=== PATIENT | female | born 1970 | race Caucasian/White ===

== ENCOUNTER 2025-09-10 11:04 | Observation (INO) | payer MEDICARE ==
[2025-09-10] MEDS ORDERED: TORAdol 30 mg Injection ONE (12:24)
[2025-09-10] MEDS: TORAdol 30 mg Injection IV ONE (12:25)
[2025-09-10 12:41] LABS: BASOPHIL % 0.2 % (0.1-1.2); Basophil (Absolute #) 0.02 x10^3/uL (0.01-0.08); Eosinophil (Absolute #) 0.17 x10^3/uL (0.04-0.36); Hematocrit 38.5 % (34.1-44.9); Hemoglobin 12.5 g/dL (11.2-15.7); IMMATURE GRAN # 0.04 x10^3u/L (0.001-0.031); IMMATURE GRAN % 0.4 % (0.001-0.429); Lymphocyte (Absolute #) 2.37 x10^3/uL (1.18-3.74); Mean Corpuscular Hemoglobin 29.1 pg (25.6-32.2); Mean Corpuscular Hgb Concent. 32.5 g/dL (32.2-35.5); Monocyte (Absolute #) 0.59 x10^3/uL (0.24-0.86); NUCLEATED RBC # 0.00 x10^3u/L (0.00-0.012); NUCLEATED RBC % 0.0 % (0.00-0.2); Platelet Count 281 x10^3/uL (182-369); Red Blood Count 4.30 x10^6/uL (3.93-5.22); White Blood Count 9.6 x10^3/uL (3.98-10.04)
[2025-09-10 12:55] LABS: Calcium 9.7 mg/dL (8.4-10.2); Carbon Dioxide 26.0 mmol/L (22-30); Creatinine 1 0.65 mg/dL (0.52-1.04); EST GLOMERULAR FILTRATION RATE 103.3 ML/MIN; Glucose 93.0 mg/dL (74-106); Potassium 3.8 mmol/L (3.5-5.1); SGOT/AST 31.0 U/L (14-36); SGPT/ALT 23.0 U/L (0-35); Total Protein 7.9 g/dL (6.3-8.2)
[2025-09-10] MEDS: Merrem 1 GM in Sodium Chloride 0.9% 100 ML IV ONE (14:42)
--- NOTE | 2025-09-10 14:59 | XRAY ---
Indication: Pain. Cat bite @1st metacarpal. Multiple contiguous axial images obtained through the right hand using 100 cc Isovue 370 contrast. Sagittal and coronal reformatted images obtained. Comparison: None Base of 2nd finger demonstrates mild subcutaneous soft tissue swelling/induration laterally presumed inflammatory/infectious. Adjacent abductor pollicis muscle demonstrates small intramuscular fluid collection measuring at least 1.7 x 1.0 x 1.8 cm with peripheral enhancement favoring pyomyositis. No other focal solid/cystic soft tissue mass or abnormal fluid collection. Bone windows demonstrates 4 mm scaphoid and lunate subcortical cysts. No acute fracture, dislocation, or osseous destructive process. Impression: 1. Soft tissue swelling/induration base 2nd finger favoring cellulitis. 2. Small intramuscular fluid collection abductor pollicis muscle with peripheral enhancement favoring pyomyositis. 3. Incidental tiny scaphoid/lunate subcortical cysts.
--- NOTE | 2025-09-10 15:17 | ERPHSYRPT ---
- History of Present Illness Time Seen by Provider: 09/10/25 15:12 Source: patient Exam Limitations: no limitations Patient Subjective Stated Complaint: PT STATES SHE WAS TOLD TO COME HERE FOR ULTRASOUND AND IV ANITBIOTICS Triage Nursing Assessment: PT ARRIVES TO THE ED VIA PRIVATE VEHICLE WITH FRIEND. PT IS ABLE TO AMBULATE INTO THE ED WITHOUT DIFFICULTY. PT STATES THAT ON TUESDAY HER HUSBANDS DOG BIT HER. THE DOG BITES WERE ON HER BILATERAL HANDS. PT WAS SEEN AT [facility] TUESDAY EVENING WHERE SHE FILLED OUT THE ANIMAL BITE PAPERWORK. PT STATES THE THE HOSPITAL GAVE HER AN ANTIBIOTIC AND PUT STERI STRIPS ON ONE OF THE WOUNDS, AND GAVE HER A TETANUS SHOT. PT WAS SEEN TODAY AT DR. PRECIADO OFFICE AND WAS TOLD TO COME TO THE ER BECAUSE SHE WILL NEED AN ULTRASOUND TO RULE OUT AN ABCESS AND IV ANTIBIOTICS. PT IS RATING THE PAIN IN HER RIGHT HAND A 9/10 THAT FEELS SHARP LIKE PINS AND NEEDLES AND RADIATES UP INTO HER ELBOW. PT WOUNDS ARE SCABBED OVER ON HER BILATERAL HANDS AND BRUISED. PTS RIGHT HAND IS RED, WARM, AND SWOLLEN. PT STATES IT IS HARD TO EVEN MOVE HER RIGHT THUMB. Physician History: Patient is a 55-year-old female history of seizure disorder, congestive heart failure, type II diabetic arthritis GERD irritable bowel syndrome, anxiety former smoker presents to our ED as a referral from her primary care doctor for evaluation and treatment of a progressive worsening right hand dog bite. Patient sustained a dog bite on Tuesday. She went to [facility]. Patient was evaluated. Associated animal bite paperwork was completed. Patient was treated with clindamycin. Patient is allergic to penicillin. Wound was dressed with Steri-Strips. Patient followed up with her primary care doctor today. Patient's primary care doctor, Dr. Preciado felt the wound was becoming progressively worse. She was concerned with possible abscess and sent patient to our ED for a CT scan and IV antibiotics. No interval trauma. Patient had an x-ray at [facility]. No fractures or dislocations observed at that time. Patient states the area is becoming more tender red and swollen. No fever or systemic manifestations. Patient otherwise feels well. She voices no other complaints or concerns at this time. Portions of this note were created with voice recognition technology. There may be grammatical, spelling, punctuation or sound alike errors Timing/Duration: day(s) Severity: moderate (4 days) Modifying Factors: Improves With: nothing Associated Symptoms: denies symptoms Allergies/Adverse Reactions: Penicillins Allergy (Severe, Verified 09/10/25 11:19) Anaphylactic Reaction adhesive Adverse Reaction (Mild, Verified 09/10/25 11:19) Skin Irritation Home Medications: Aspirin 81 mg PO DAILY 09/10/25 [History] Calcium Citrate/Vitamin D3 [Calcium Citrate - Vit D3 Tab] 1 each PO DAILY 09/10/25 [History] Cinnamon Bark [Cinnamon] 2,000 mg PO DAILY 09/10/25 [History] Fenofibrate 160 mg PO DAILY 09/10/25 [History] Ferrous Sulfate [Iron] 65 mg PO DAILY 09/10/25 [History] Fexofenadine HCl [Deanna Allergy] 60 mg PO DAILY 09/10/25 [History] Insulin Aspart [NovoLOG Insulin] See Rx Instructions .ROUTE .COMPLEX 09/10/25 [History] Insulin Glargine [Lantus Insulin] 15 units SQ HS 09/10/25 [History] Levothyroxine Sodium 88 Mcg [Synthroid 88 Mcg] 88 mcg PO DAILY 09/10/25 [History] Mecobalamin [B12 Active] 0.5 tab PO WEEKLY 09/10/25 [History] Metformin HCl 500 mg [Glucophage 500 MG] 500 mg PO BIDWM 09/10/25 [History] Metoprolol Succinate [Toprol Xl] 100 mg PO DAILY 09/10/25 [History] Naproxen Sodium [Aleve] 220 mg PO Q4-6HPRN PRN 09/10/25 [History] Omeprazole 20 mg PO DAILY 09/10/25 [History] Rosuvastatin Calcium 10 mg PO HS 09/10/25 [History] Simethicone 125 mg PO DAILY 09/10/25 [History] Tirzepatide [Mounjaro] 2.5 mg SQ WEEKLY 09/10/25 [History] Hx Tetanus, Diphtheria Vaccination/Date Given: Yes Hx Influenza Vaccination/Date Given: Yes Hx Pneumococcal Vaccination/Date Given: No Immunizations Up to Date: Yes Travel Risk - International Travel Have you traveled outside of the country in past 3 weeks: No - Emerging Infectious Disease Are you exhibiting symptoms associated with any current EIDs: No - Review of Systems All Other Systems: Reviewed and Negative - Past Medical History Pertinent Past Medical History: Yes Neurological History: Seizures ENT History: No Pertinent History Cardiac History: Congestive Heart Failure Respiratory History: CHF Endocrine Medical History: Diabetes Type II Musculoskeletal History: Arthritis, Degenerative Disk Disease, Osteoarthritis GI Medical History: No Pertinent History, Diverticulosis, GERD, Hemorrhoids, Irritable Bowel History: No Pertinent History Psycho-Social History: Anxiety Female Reproductive Disorders: No Pertinent History, Menstrual Problems Other Medical History: FATTY LIVER, COLAGEN DISORDER, HYPERMOBILITY, BRIDGING IN THE HEART, OVARIAN CYST - Past Surgical History Past Surgical History: Yes Neuro Surgical History: No Pertinent History Cardiac: Cardiac Catheterization Respiratory: No Pertinent History Gastrointestinal: Cholecystectomy Genitourinary: No Pertinent History Musculoskeletal: No Pertinent History Female Surgical History: No Pertinent History Other Surgical History: GASTRIC BYPASS IN 2005, COLONOSCOPY 2023 - Social History Smoking Status: Former smoker Exposure to second hand smoke: Yes Drug Use: none - Social Determinants of Health Will the patient participate in the screening: Yes Do you worry about a steady place to live?: No Do you have any problems with any of the following?: No known problems In the past 12 months,have you had to go without utilities?: No Transportation Issues: No Has anyone in your support network made you feel unsafe?: No Have you or anyone in your house had to go w/o enough food: No - Nursing Vital Signs Nursing Vital Signs: Initial Vital Signs Temperature 97.5 F 09/10/25 11:16 Pulse Rate 66 09/10/25 11:16 Respiratory Rate 12 09/10/25 11:16 Blood Pressure 154/79 09/10/25 11:16 O2 Sat by Pulse Oximetry 98 09/10/25 11:16 Pain Scale Pain Intensity 4 - Physical Exam General Appearance: no apparent distress, alert Eye Exam: PERRL/EOMI, eyes nml inspection Ears, Nose, Throat Exam: normal ENT inspection, moist mucous membranes Neck Exam: normal inspection, full range of motion Respiratory Exam: normal breath sounds, lungs clear, No respiratory distress Cardiovascular Exam: regular rate/rhythm, normal peripheral pulses Gastrointestinal/Abdomen Exam: soft, normal bowel sounds, No tenderness, No mass Back Exam: normal inspection, normal range of motion, No CVA tenderness, No vertebral tenderness Extremity Exam: normal inspection, normal range of motion, pelvis stable, other (There is some swelling and cellulitis tracking proximately from the right hand near the thumb index finger up to the wrist area. No lymphadenopathy. Involved extremities neurovascular intact distally compartments are soft cap refill less than 2 seconds.) Neurologic Exam: alert, oriented x 3, cooperative, normal mood/affect, nml cerebellar function, nml station & gait, sensation nml, No motor deficits Skin Exam: normal color, warm, dry, No rash Lymphatic Exam: No adenopathy SpO2 Interpretation: normal SpO2: 98 O2 Delivery: Room Air - Course Nursing assessment & vital signs reviewed: Yes - CT Exams Upper Extremity CT Interpretation: Tele-radiologist Report (CT with contrast reveals cellulitis of the involved hand and abductor pollicis pyomyositis.) Ordered Tests: Active Orders 24 hr Category Date Time Status Storage Battery Inspector And Tester STAT Care 09/10/25 11:47 Active IV Insertion STAT Care 09/10/25 11:47 Active Pulse Oximetry (ED) STAT Care 09/10/25 11:47 Active UPPER EXTREMITY W CONTRAST [CT] Stat Exams 09/10/25 12:06 Completed BLOOD CULTURE Stat Lab 09/10/25 12:28 Received CBC W DIFF Stat Lab 09/10/25 12:10 Completed CMP Stat Lab 09/10/25 12:10 Completed Medication Summary Generic Name Dose Route Start Last Admin Trade Name Freq PRN Reason Stop Dose Admin Sodium Chloride 1,000 mls @ 100 mls/hr 09/10/25 12:00 09/10/25 12:00 Sodium Chloride 0.9% 1000 Ml IV 10/10/25 11:59 100 mls/hr .Q10H VICKY Administration Vancomycin HCl 1 gm in 200 mls @ 125 mls/hr 09/10/25 14:31 Vancomycin 1 Gram/200 Ml Bag IV 09/10/25 16:06 STAT ONE Discontinued Medications Generic Name Dose Route Start Last Admin Trade Name Freq PRN Reason Stop Dose Admin Meropenem 1 gm/ Sodium 100 mls @ 200 mls/hr 09/10/25 14:31 09/10/25 15:12 Chloride IV 09/10/25 15:00 Infused STAT ONE Infusion Sodium Chloride Confirm 09/10/25 14:37 Sodium Chloride 0.9% Administered 09/10/25 14:38 Dose 100 mls @ ud .ROUTE .STK-MED ONE Ketorolac Tromethamine 30 mg 09/10/25 12:07 09/10/25 12:25 Ketorolac Tromethamine 30 Mg/Ml Inj IV 09/10/25 12:08 30 mg STAT ONE Administration Ketorolac Tromethamine Confirm 09/10/25 12:24 Ketorolac Tromethamine 30 Mg/Ml Inj Administered 09/10/25 12:25 Dose 30 mg .ROUTE .STK-MED ONE Meropenem Confirm 09/10/25 14:37 Meropenem 1 Gm Vial Administered 09/10/25 14:38 Dose 1 gm IV .STK-MED ONE Lab/Rad Data: Laboratory Result Diagrams 09/10/25 12:10 09/10/25 12:10 Laboratory Results 09/10/25 09/10/25 Range/Units 12:10 12:10 WBC 9.6 (3.98-10.04) x10^3/uL RBC 4.30 (3.93-5.22) x10^6/uL Hgb 12.5 (11.2-15.7) g/dL Hct 38.5 (34.1-44.9) % MCV 89.5 (79.4-94.8) fL MCH 29.1 (25.6-32.2) pg MCHC 32.5 (32.2-35.5) g/dL RDW 12.8 (11.7-14.4) % Plt Count 281 (182-369) x10^3/uL MPV 11.3 (9.4-12.3) fL Gran % 66.6 (34.0-71.1) % Immature Gran % (Auto) 0.4 (0.001-0.429) % Nucleat RBC Rel Count 0.0 (0.00-0.2) % Eos # (Auto) 0.17 (0.04-0.36) x10^3/uL Immature Gran # (Auto) 0.04 H (0.001-0.031) x10^3u/L Absolute Lymphs (auto) 2.37 (1.18-3.74) x10^3/uL Absolute Monos (auto) 0.59 (0.24-0.86) x10^3/uL Absolute Nucleated RBC 0.00 (0.00-0.012) x10^3u/L Lymphocytes % 24.8 (19.3-51.7) % Monocytes % 6.2 (4.7-12.5) % Eosinophils % 1.8 (0.7-5.8) % Basophils % 0.2 (0.1-1.2) % Absolute Granulocytes 6.38 H (1.56-6.13) x10^3/uL Basophils # 0.02 (0.01-0.08) x10^3/uL Sodium 138 (135-145) mmol/L Potassium 3.8 (3.5-5.1) mmol/L Chloride 102 (98-107) mmol/L Carbon Dioxide 26 (22-30) mmol/L Anion Gap 13.3 (5-15) MEQ/L BUN 11 (7-17) mg/dL Creatinine 0.65 (0.52-1.04) mg/dL Estimated GFR 103.3 ML/MIN Glucose 93 (74-106) mg/dL Calcium 9.7 (8.4-10.2) mg/dL Total Bilirubin 0.60 (0.2-1.3) mg/dL AST 31 (14-36) U/L ALT 23 (0-35) U/L Alkaline Phosphatase 68 (38-126) U/L Serum Total Protein 7.9 (6.3-8.2) g/dL Albumin 4.5 (3.5-5.0) g/dL - Progress Progress: improved Progress Note: I spoke to Dr. Mireles hospitalist at 3:27 PM. He advised consulting with orthopedic surgery before admission to see whether or not specialized services would be needed that would preclude admission to our facility. I spoke to Dr. Jose Alejandro Ervin of orthopedic surgery at 3:35 PM. He states that based on the CAT scan report the infection should resolve with IV antibiotics. However if the infection declared itself and or formed an abscess that need to be drained he would be able to perform the procedure in house and that he would be available for consultation at any time. I spoke to again at 3:43 PM. I advised him that Dr. Jose Alejandro Ervin of orthopedics feels the patient can be admitted to our ED for IV antibiotics and he would be available for consultation if symptoms or if patient's condition worsens. Dr. Mireles accepts admission at 3:44 PM. Patient is a 55-year-old female history of seizure disorder, congestive heart failure, type II diabetic arthritis GERD irritable bowel syndrome, anxiety former smoker presents to our ED as a referral from her primary care doctor for evaluation and treatment of a progressive worsening right hand dog bite. Patient sustained a dog bite on Tuesday. She went to [facility]. Patient was evaluated. Associated animal bite paperwork was completed. Patient was treated with clindamycin. Patient is allergic to penicillin. Wound was dressed with Steri-Strips. Patient followed up with her primary care doctor today. Patient's primary care doctor, Dr. Preciado felt the wound was becoming progressively worse. She was concerned with possible abscess and sent patient to our ED for a CT scan and IV antibiotics. Physical exam reveals the thenar eminence to be tender swollen with overlying cellulitis. The involved extremities neurovasc intact distally compartments are soft cap refill less than 2 seconds. Laboratory workup essentially nonremarkable. No leukocytosis no fever. There are some early lymphangitis. CT scan shows pyomyositis no rosalina abscess. Patient will require hospitalization for IV antibiotics. Plan of care discussed with patient. She agrees to admission at [facility] for further evaluation and treatment. Meropenem antibiotic ordered and administered as a second line as patient is allergic to penicillin. Portions of this note were created with voice recognition technology. There may be grammatical, spelling, punctuation or sound alike errors History obtained from patient and her friend who is at the bedside. Differential diagnosis includes hand abscess, cellulitis, pyomyositis, hand fracture, foreign body Complexity of problems addressed is moderate acute complicated. No critical care time. Complexity of data reviewed and analyzed is extensive. Test ordered test reviewed results analyzed and correlated clinically with history and physical exam. Management discussed with hospitalist and orthopedic surgery service. Risk of complication and or risk of morbidity/mortality of patient management is high. Patient requires hospitalization for further evaluation and treatment with IV antibiotics. Vital stable. Time spent admit patient approximately 20 minutes. Plan of care established for shared decision making. No social determinants of health present to impede follow-up. Portions of this note were created with voice recognition technology. There may be grammatical, spelling, punctuation or sound alike errors Patient declined additional pain medication 09/10/25 15:40 Discussed with : Kaveh Will see patient in: hospital (observation) Counseled pt/family regarding: lab results, diagnosis, rad results - Departure Departure Disposition: Observation Clinical Impression: Dog bite, Pyomyositis, Cellulitis, Lymphangitis Condition: Stable Critical Care Time: No Referrals: DESTINEE PRECIADO DO [Primary Care Provider, [facility]] - Follow up/PCP as directed
[2025-09-10] MEDS ORDERED: VANCOMYCIN 1 GRAM/200 ML BAG 1 GM/200 ML PIGGYBACK IV ONE (15:45)
[2025-09-10] MEDS: VANCOMYCIN 1 GRAM/200 ML BAG 1 GM/200 ML PIGGYBACK IV ONE (15:46)
--- NOTE | 2025-09-10 16:32 | PCM.HP ---
History of Present Illness - Chief Complaint Chief Complaint: dog bite Date: 09/10/25 History of Present Illness: is a 55-year-old female with a past medical history significant for seizure disorder, congestive heart failure, type II diabetes mellitus, arthriti s, GERD, irritable bowel syndrome, anxiety, and former tobacco use presented to the emergency department on 09/10/25 as a referral from her primary care provider for evaluation of a progressively worsening dog bite to the right hand. The injury occurred on Tuesday when she was bitten by her own dog. She was initially evaluated at [facility], where animal bite paperwork was completed, a Tdap vaccine was administered, and she was prescribed oral clindamycin. This medication was later discontinued when she was instructed to start a new prescription, which she did not obtain. She is allergic to penicillin. The wound at that time was dressed with Steri-Strips. Pt was seen by Ortho at [facility] yesterday and a new RX was sent in but she did not pick this up. The patient followed up with her primary care physician, Dr. Boland, earlier today. Due to increasing redness, swelling, and tenderness, her provider became concerned for possible abscess formation and referred her to our ED for further evaluation, including a CT scan and IV antibiotics. The patient denies any interval trauma, fever, or systemic symptoms and otherwise feels well. She reports that the wound continues to worsen in appearance and discomfort. A prior x-ray performed at [facility] showed no fractures or dislocations. CT imaging of the right hand obtained today demonstrated soft tissue swelling and induration at the base of the second finger consistent with cellulitis, as well as a small intramuscular fluid collection within the abductor pollicis muscle with peripheral enhancement concerning for pyomyositis. Tiny incidental subcortical cysts of the scaphoid and lunate were also noted. Orthopedics was consulted in the ED and did not feel that surgical drainage was indicated at this time. The patient was started on IV antibiotics and her right upper extremity was placed in elevation at heart level to assist with edema control. Pain was managed with Toradol in the ED, reducing her pain to a tolerable level of 5/10. Blood cultures 2 were obtained. Her laboratory results were overall reassuring, with a normal white blood cell count. Her blood pressure was elevated on arrival; however, she reports taking her antihypertensive medication today and elevation may be related to pain. She denies any additional concerns at this time. - Review of Systems Constitutional: No Fever, No Chills Eyes: No Symptoms Ears, Nose, & Throat: No Symptoms Respiratory: No Cough, No Short Of Breath Cardiac: No Chest Pain, No Edema, No Syncope Abdominal/Gastrointestinal: No Abdominal Pain, No Nausea, No Vomiting, No Diarrhea Genitourinary Symptoms: No Dysuria Musculoskeletal: No Back Pain, No Neck Pain Skin: Skin Lesions (right hand dog bite), No Rash Neurological: No Dizziness, No Focal Weakness, No Sensory Changes Psychological: No Symptoms Endocrine: No Symptoms Hematologic/Lymphatic: No Symptoms Immunological/Allergic: No Symptoms Medications & Allergies Home Medications: Home Medication List Aspirin 81 mg PO DAILY 09/10/25 [History Confirmed 09/10/25] Calcium Citrate/Vitamin D3 [Calcium Citrate - Vit D3 Tab] 1 each PO DAILY 09/10/25 [History Confirmed 09/10/25] Cinnamon Bark [Cinnamon] 2,000 mg PO DAILY 09/10/25 [History Confirmed 09/10/25] Fenofibrate 160 mg PO DAILY 09/10/25 [History Confirmed 09/10/25] Ferrous Sulfate [Iron] 65 mg PO DAILY 09/10/25 [History Confirmed 09/10/25] Fexofenadine HCl [Deanna Allergy] 60 mg PO DAILY 09/10/25 [History Confirmed 09/10/25] Insulin Aspart [NovoLOG Insulin] See Rx Instructions .ROUTE .COMPLEX 09/10/25 [History Confirmed 09/10/25] Insulin Glargine [Lantus Insulin] 15 units SQ HS 09/10/25 [History Confirmed 09/10/25] Levothyroxine Sodium 88 Mcg [Synthroid 88 Mcg] 88 mcg PO DAILY 09/10/25 [History Confirmed 09/10/25] Mecobalamin [B12 Active] 0.5 tab PO WEEKLY 09/10/25 [History Confirmed 09/10/25] Metformin HCl 500 mg [Glucophage 500 MG] 500 mg PO BIDWM 09/10/25 [History Confirmed 09/10/25] Metoprolol Succinate [Toprol Xl] 100 mg PO DAILY 09/10/25 [History Confirmed 09/10/25] Naproxen Sodium [Aleve] 220 mg PO Q4-6HPRN PRN 09/10/25 [History Confirmed 09/10/25] Omeprazole 20 mg PO DAILY 09/10/25 [History Confirmed 09/10/25] Rosuvastatin Calcium 10 mg PO HS 09/10/25 [History Confirmed 09/10/25] Simethicone 125 mg PO DAILY 09/10/25 [History Confirmed 09/10/25] Tirzepatide [Mounjaro] 2.5 mg SQ WEEKLY 09/10/25 [History Confirmed 09/10/25] Allergies/Adverse Reactions: Allergies Allergy/AdvReac Type Severity Reaction Status Date / Time Penicillins Allergy Severe Anaphylactic Verified 09/10/25 11:19 Reaction adhesive AdvReac Mild Skin Verified 09/10/25 11:19 Irritation - Past Medical History Past Medical History: Yes Neurological History: Seizures ENT History: No Pertinent History Cardiac History: Congestive Heart Failure Respiratory History: CHF Endocrine Medical History: Diabetes Type II Musculoskelatal History: Arthritis, Degenerative Disk Disease, Osteoarthritis GI Medical History: No Pertinent History, Diverticulosis, GERD, Hemorrhoids, Irritable Bowel History: No Pertinent History Pyscho-Social History: Anxiety Reproductive Disorders: No Pertinent History, Menstrual Problems Comment: FATTY LIVER, COLAGEN DISORDER, HYPERMOBILITY, BRIDGING IN THE HEART, OVARIAN CYST - Past Surgical History Past Surgical History: Yes Neuro Surgical History: No Pertinent History Cardiac History: Cardiac Catheterization Respiratory Surgery: No Pertinent History GI Surgical History: Cholecystectomy Genitourinary Surgical Hx: No Pertinent History Musculskeletal Surgical Hx: No Pertinent History Female Surgical History: No Pertinent History Other Surgical History: GASTRIC BYPASS IN 2005, COLONOSCOPY 2023 - Social History Smoking Status: Former smoker Exposure to second hand smoke: Yes Alcohol: None Drug Use: none - Social Determinants of Health Will the patient participate in the screening: Yes Do you worry about a steady place to live?: No Do you have any problems with any of the following?: No known problems In the past 12 months,have you had to go without utilities?: No Have you or anyone in your house had to go without enough: No Transportation Issues: No Has anyone in your support network made you feel unsafe?: No - Physical Exam Vital Signs: Vital Signs - 24 hr Temp Pulse Resp BP BP Pulse Ox 09/10/25 16:00 78 16 183/94 98 09/10/25 15:51 98 09/10/25 15:30 71 18 171/86 98 09/10/25 15:00 67 17 171/77 99 09/10/25 14:31 67 15 198/103 09/10/25 14:09 74 12 169/87 98 09/10/25 13:30 166/74 09/10/25 13:00 63 18 143/75 99 09/10/25 12:31 63 16 177/81 98 09/10/25 12:13 64 15 143/76 99 09/10/25 12:01 65 14 168/82 99 09/10/25 11:59 98 09/10/25 11:31 65 14 129/68 98 09/10/25 11:16 97.5 F 66 12 154/79 98 General Appearance: no apparent distress, alert Neurologic Exam: alert, oriented x 3, cooperative, normal mood/affect, nml cerebellar function, nml station & gait, sensation nml, No motor deficits Eye Exam: PERRL/EOMI, eyes nml inspection Ears, Nose, Throat Exam: normal ENT inspection, TMs normal, pharynx normal, moist mucous membranes Neck Exam: normal inspection, non-tender, supple, full range of motion Respiratory Exam: normal breath sounds, lungs clear, No respiratory distress Cardiovascular Exam: regular rate/rhythm, normal heart sounds, normal peripheral pulses Gastrointestinal/Abdomen Exam: soft, normal bowel sounds, No tenderness, No mass Back Exam: normal inspection, normal range of motion, No CVA tenderness, No vertebral tenderness Extremity Exam: normal inspection, normal range of motion, pelvis stable Skin Exam: normal color, warm, dry, other (dog bite right hand- steri- strips in place), No rash Lymphatic Exam: No adenopathy Results - Labs Lab/Micro Results: Lab Results-Last 24 Hours 09/10/25 09/10/25 Range/Units 12:10 12:10 WBC 9.6 (3.98-10.04) x10^3/uL RBC 4.30 (3.93-5.22) x10^6/uL Hgb 12.5 (11.2-15.7) g/dL Hct 38.5 (34.1-44.9) % MCV 89.5 (79.4-94.8) fL MCH 29.1 (25.6-32.2) pg MCHC 32.5 (32.2-35.5) g/dL RDW 12.8 (11.7-14.4) % Plt Count 281 (182-369) x10^3/uL MPV 11.3 (9.4-12.3) fL Gran % 66.6 (34.0-71.1) % Immature Gran % (Auto) 0.4 (0.001-0.429) % Nucleat RBC Rel Count 0.0 (0.00-0.2) % Eos # (Auto) 0.17 (0.04-0.36) x10^3/uL Immature Gran # (Auto) 0.04 H (0.001-0.031) x10^3u/L Absolute Lymphs (auto) 2.37 (1.18-3.74) x10^3/uL Absolute Monos (auto) 0.59 (0.24-0.86) x10^3/uL Absolute Nucleated RBC 0.00 (0.00-0.012) x10^3u/L Lymphocytes % 24.8 (19.3-51.7) % Monocytes % 6.2 (4.7-12.5) % Eosinophils % 1.8 (0.7-5.8) % Basophils % 0.2 (0.1-1.2) % Absolute Granulocytes 6.38 H (1.56-6.13) x10^3/uL Basophils # 0.02 (0.01-0.08) x10^3/uL Sodium 138 (135-145) mmol/L Potassium 3.8 (3.5-5.1) mmol/L Chloride 102 (98-107) mmol/L Carbon Dioxide 26 (22-30) mmol/L Anion Gap 13.3 (5-15) MEQ/L BUN 11 (7-17) mg/dL Creatinine 0.65 (0.52-1.04) mg/dL Estimated GFR 103.3 ML/MIN Glucose 93 (74-106) mg/dL Calcium 9.7 (8.4-10.2) mg/dL Total Bilirubin 0.60 (0.2-1.3) mg/dL AST 31 (14-36) U/L ALT 23 (0-35) U/L Alkaline Phosphatase 68 (38-126) U/L Serum Total Protein 7.9 (6.3-8.2) g/dL Albumin 4.5 (3.5-5.0) g/dL - Radiology Impressions Radiology Exams & Impressions: Radiology Procedures Category Date Time Status UPPER EXTREMITY W CONTRAST [CT] Stat Exams 09/10/25 12:06 Completed Assessment/Plan (1) Dog bite Current Visit: Yes Status: Acute Qualifiers: Encounter type: subsequent encounter Qualified Code(s): W54.0XXD - Bitten by dog, subsequent encounter Assessment & Plan: - Sent to ER by PCP - Was seen at [facility] initally - Labs reviewed - Radiology results reviewed - Dog bite form completed at inital visit at [facility] per pt. - Elevate arm to heart level - Took Clindamycin OP - BC x2 - TDAP up to date - IV antibiotics - Narcotic pain medication BID PRN - Tylenol PRN Code(s): W54.0XXA - BITTEN BY DOG, INITIAL ENCOUNTER (2) Cellulitis Current Visit: Yes Status: Acute Assessment & Plan: - From dog bite of right hand - IV antibiotics - CBC, CMP reviewed Code(s): L03.90 - CELLULITIS, UNSPECIFIED (3) Morbid obesity Current Visit: Yes Status: Chronic Assessment & Plan: - Advised ADA diet and exercise control Code(s): E66.01 - MORBID (SEVERE) OBESITY DUE TO EXCESS CALORIES (4) Pyomyositis Current Visit: Yes Status: Acute Assessment & Plan: - As seen on CT extremity: 1. Soft tissue swelling/induration base 2nd finger favoring cellulitis. 2. Small intramuscular fluid collection abductor pollicis muscle with peripheral enhancement favoring pyomyositis. 3. Incidental tiny scaphoid/lunate subcortical cysts. - Ortho consult- no intervention needed at this time. - IV antibiotics Code(s): M60.009 - INFECTIVE MYOSITIS, UNSPECIFIED SITE (5) Lymphangitis Current Visit: Yes Status: Acute Assessment & Plan: - As seen on CT extremity - IV antibiotics Code(s): I89.1 - LYMPHANGITIS (6) Type II diabetes mellitus Current Visit: Yes Status: Chronic Qualifiers: Diabetes mellitus oysterman insulin use: with oysterman use Diabetes mellitus complication status: without complication Qualified Code(s): E11.9 - Type 2 diabetes mellitus without complications; Z79.4 - [facility] (current) use of insulin Assessment & Plan: - A1C - Accuchecks Ac/HS - Humalog s/s - Continue metformin (7) GERD (gastroesophageal reflux disease) Current Visit: Yes Status: Chronic Assessment & Plan: - Continue PPI Code(s): K21.9 - GASTRO-ESOPHAGEAL REFLUX DISEASE WITHOUT ESOPHAGITIS (8) Anxiety Current Visit: Yes Status: Chronic Assessment & Plan: - Continue home meds Code(s): F41.9 - ANXIETY DISORDER, UNSPECIFIED (9) CHF (congestive heart failure) Current Visit: Yes Status: Chronic Assessment & Plan: - Not in acute exacerbation - Continue home meds Code(s): I50.9 - HEART FAILURE, UNSPECIFIED (10) HTN (hypertension) Current Visit: Yes Status: Chronic Assessment & Plan: - BP elevated- trend - Hydralizine PRN Code(s): I10 - ESSENTIAL (PRIMARY) HYPERTENSION (11) Hypothyroidism Current Visit: Yes Status: Chronic Assessment & Plan: - Continue Synthroid VTE: Lovenox PPI: omeprazole Next of KIN: Spouse- Jaya D/C plan: 1-2 days Code status: Full PLan of care time > 50 minutes Code(s): E03.9 - HYPOTHYROIDISM, UNSPECIFIED Telemedicine Encounter - Telemedicine Encounter Telemedicine Encounter: "The entirety of this encounter was performed via Telemedicine" This visit was performed using real-time audio and video connection between my location and thepatients locationwith the assistance of a surrogateat the patients location. Written or verbal consent was obtained from the pat ient/guardian to perform this visit [facility]. Any patient questions regarding the telemedicine interaction were answered.
[2025-09-10] MEDS ORDERED: APRESOLINE 20 MG/ML INJ IV PRN (17:07)
[2025-09-10] MEDS ORDERED: NON-FORMULARY ITEM (Mecobalamin [B12 Active] 1,000 MCG Tab.Chew) PO SCH (17:15)
[2025-09-10] MEDS ORDERED: MEDICATION INTERVENTION MC SCH (17:30)
[2025-09-10] MEDS: PHARMACY DOSING REQUIRED: VANCOMYCIN IV STA (17:54)
[2025-09-10] MEDS: VANCOMYCIN 1 GRAM/200 ML BAG 1 GM/200 ML PIGGYBACK IV SCH (17:55)
[2025-09-10] MEDS ORDERED: Cyclobenzaprine 10 MG ONE (22:38)
[2025-09-10] MEDS: Zanaflex 4 MG PO PRN (22:41)
[2025-09-10] MEDS: NORCO 5/325 MG PO PRN (22:41)
[2025-09-10] MEDS: ZOCOR 20MG PO SCH (22:41)
[2025-09-10] MEDS: Merrem 1 GM in Sodium Chloride 0.9% 100 ML IV SCH (22:42)
[2025-09-10] MEDS: Lantus Insulin SQ SCH (22:42)
[2025-09-10] MEDS: HUMALOG SQ SCH (22:43)
[2025-09-10] MEDS: Protonix 40MG Tablet PO SCH (22:59)
[2025-09-10] MEDS: Toprol Xl 50 MG PO SCH (23:00)
[2025-09-11] MEDS: TORAdol 30 mg Injection IV ONE (05:12)
[2025-09-11 05:50] LABS: Hematocrit 34.5 % (34.1-44.9); Hemoglobin 10.8 g/dL (11.2-15.7); Mean Corpuscular Hemoglobin 28.6 pg (25.6-32.2); Mean Corpuscular Hgb Concent. 31.3 g/dL (32.2-35.5); Platelet Count 262 x10^3/uL (182-369); Red Blood Count 3.78 x10^6/uL (3.93-5.22); White Blood Count 7.4 x10^3/uL (3.98-10.04)
[2025-09-11 06:30] LABS: Calcium 9.4 mg/dL (8.4-10.2); Carbon Dioxide 25.0 mmol/L (22-30); Creatinine 1 0.77 mg/dL (0.52-1.04); EST GLOMERULAR FILTRATION RATE 90.5 ML/MIN; Glucose 146.0 mg/dL (74-106); SGOT/AST 25.0 U/L (14-36); SGPT/ALT 18.0 U/L (0-35); Total Protein 6.8 g/dL (6.3-8.2)
[2025-09-11 06:33] LABS: Potassium 4.4 mmol/L (3.5-5.1)
[2025-09-11] MEDS ORDERED: NORCO 5/325 MG PO PRN (07:54)
[2025-09-11] MEDS: VANCOMYCIN 1.25 GM/250 ML BAG 1.25 GM/250 ML PIGGYBACK IV SCH (09:01)
[2025-09-11] MEDS: Zofran 4 MG/2 ML VIAL IV PRN (09:31)
[2025-09-11] MEDS ORDERED: CINNAMON BARK 500 MG PO SCH (10:00)
[2025-09-11] MEDS ORDERED: Protonix 40MG Tablet PO SCH (10:00)
[2025-09-11] MEDS ORDERED: Toprol Xl 50 MG PO SCH (10:00)
[2025-09-11] MEDS: HOLD METFORMIN PRODUCTS FOR 48 HOURS MC SCH (10:07)
[2025-09-11] MEDS: CLARITIN 10 MG PO SCH (10:19)
[2025-09-11] MEDS: FEOSOL 325 MG PO SCH (10:19)
[2025-09-11] MEDS: Mylicon 80MG PO SCH (10:20)
[2025-09-11] MEDS: ECOTRIN 81 MG PO SCH (10:20)
[2025-09-11] MEDS: Calcium 500MG W/Vit D Tablet PO SCH (10:20)
[2025-09-11] MEDS: Tricor 145 MG PO SCH (10:21)
[2025-09-11] MEDS: SYNTHROID 88 MCG PO SCH (10:22)
[2025-09-11] MEDS: DIFLUCAN PO ONE (10:23)
--- NOTE | 2025-09-11 11:56 | PCM.NOTE ---
Date and Time: 09/11/25 1151 Subjective Assessment: 09/10/25 is a 55-year-old female with a past medical history significant for seizure disorder, congestive heart failure, type II diabetes mellitus, arthritis, GERD, irritable bowel syndrome, anxiety, and former tobacco use presented to the emergency department on 09/10/25 as a referral from her primary care provider for evaluation of a progressively worsening dog bite to the right hand. The injury occurred on Tuesday when she was bitten by her own dog. She was initially evaluated at [facility], where animal bite paperwork was completed, a Tdap vaccine was administered, and she was prescribed oral clindamycin. This medication was later discontinued when she was instructed to start a new prescription, which she did not obtain. She is allergic to penicillin. The wound at that time was dressed with Steri-Strips. Pt was seen by Ortho at [place] yesterday and a new RX was sent in but she did not pick this up. The patient followed up with her primary care physician, Dr. Boland, earlier today. Due to increasing redness, swelling, and tenderness, her provider became concerned for possible abscess formation and referred her to our ED for further evaluation, including a CT scan and IV antibiotics. The patient denies any interval trauma, fever, or systemic symptoms and otherwise f eels well. She reports that the wound continues to worsen in appearance and discomfort. A prior x-ray performed at [facility] showed no fractures or dislocations. CT imaging of the right hand obtained today demonstrated soft tissue swelling and induration at the base of the second finger consistent with cellulitis, as well as a small intramuscular fluid collection within the abductor pollicis muscle with peripheral enhancement concerning for pyomyositis. Tiny incidental subcortical cysts of the scaphoid and lunate were also noted. Orthopedics was consulted in the ED and did not feel that surgical drainage was indicated at this time. The patient was started on IV antibiotics and her right upper extremity was placed in elevation at heart level to assist with edema control. Pain was managed with Toradol in the ED, reducing her pain to a tolerable level of 5/10. Blood cultures 2 were obtained. Her laboratory results were overall reassuring, with a normal white blood cell count. Her blood pressure was elevated on arrival; however, she reports taking her antihypertensive medication today and elevation may be related to pain. She denies any additional concerns at this time. 09/11/25 Patient sitting up in bed this morning. She states that she is feeling better. She continues to have right hand erythema and edema from the dog bite. Continue IV Merrem and vancomycin. Continue narcotic pain control as needed. Patient states that she developed diarrhea overnight and C. difficile ordered for further evaluation. Started probiotic. Patient admits that she did take Imodium out of her purse last night. Advised patient to not take any further medications from home if she has them, and to let us know if she needs anything. Explained that if C. difficile is negative we can prescribe Imodium and diarrhea is likely secondary to antibiotics. Labs overall non-concerning. Patient denies any further concerns at this time. - Review of Systems Constitutional: No Fever, No Chills Eyes: No Symptoms Ears, Nose, & Throat: No Symptoms Respiratory: No Cough, No Short Of Breath Cardiac: No Chest Pain, No Edema, No Syncope Abdominal/Gastrointestinal: No Abdominal Pain, No Nausea, No Vomiting, No Diarrhea Genitourinary Symptoms: No Dysuria Musculoskeletal: No Back Pain, No Neck Pain Skin: Skin Lesions (right hand dog bite), No Rash Neurological: No Dizziness, No Focal Weakness, No Sensory Changes Psychological: No Symptoms Endocrine: No Symptoms Hematologic/Lymphatic: No Symptoms Immunological/Allergic: No Symptoms Objective Exam General Appearance: no apparent distress, alert Neurologic Exam: alert, oriented x 3, cooperative, normal mood/affect, nml cerebellar function, sensation nml, No motor deficits Skin Exam: normal color, warm, dry, other (right hand dog bite, + erythema and edema) Wound Assessment: Skin/Wound Assessment Wound/Incision Assessment Start: 09/11/25 03:37 Text: Status: Active Freq: Q6H Protocol: Document 09/11/25 08:00 AR (Rec: 09/11/25 11:37 AR [id number]) Wound/Incision Assessment Left breast Wound Assessment Shift Assessment Wound Type dog bite Wound Stage Non Pressure Wound Drainage Amount None General Appearance Open to air Left Elbow Wound Assessment Shift Assessment Wound Type dog bite Wound Stage Non Pressure Wound Drainage Amount None General Appearance Open to air Surrounding Tissue Bright Red Right Hand Wound Assessment Shift Assessment Wound Type dog bite Wound Stage Non Pressure Wound Drainage Amount None Drainage Odor None/Absent General Appearance Open to air Surrounding Tissue Bright Red,Edematous Comment Steri strips intact at this time Wound Photo Photo Taken No Eye Exam: PERRL, EOMI, eyes nml inspection Ears, Nose, Throat Exam: normal ENT inspection, pharynx normal, moist mucous membranes Neck Exam: normal inspection, non-tender, supple, full range of motion Respiratory Exam: normal breath sounds, lungs clear, No respiratory distress Cardiovascular Exam: regular rate/rhythm, normal heart sounds Gastrointestinal/Abdomen Exam: soft, No tenderness, No mass Extremity Exam: normal inspection, normal range of motion Back Exam: normal inspection, normal range of motion, No CVA tenderness, No vertebral tenderness Pelvic Exam: deferred Rectal Exam: deferred Objective Data Vital Signs: Vital Signs - 24 hr Temp Pulse Resp BP BP Pulse Ox 09/11/25 11:39 97.9 F 60 16 138/68 92 L 09/11/25 07:40 97.4 F 58 L 18 113/59 94 L 09/11/25 04:00 96.7 F 57 L 16 92/53 93 L 09/11/25 00:00 98.5 F 68 20 107/54 92 L 09/10/25 20:00 98 F 65 20 120/58 95 09/10/25 16:45 97.2 F 70 18 183/83 99 09/10/25 16:00 78 16 183/94 98 09/10/25 15:51 98 09/10/25 15:30 71 18 171/86 98 09/10/25 15:00 67 17 171/77 99 09/10/25 14:31 67 15 198/103 09/10/25 14:09 74 12 169/87 98 09/10/25 13:30 166/74 09/10/25 13:00 63 18 143/75 99 09/10/25 12:31 63 16 177/81 98 09/10/25 12:13 64 15 143/76 99 09/10/25 12:01 65 14 168/82 99 09/10/25 11:59 98 Pain Assessment - Last Documented Pain Intensity 4 Pain Scale Used 0-10 Pain Scale Intake and Output: Intake & Output 09/08/25 09/09/25 09/10/25 09/11/25 11:59 11:59 11:59 11:59 Intake Total 1420 Balance 1420 Weight 114.2 kg 118 kg Lab Results: Lab Results-Last 24 Hours 12/12/0409/10/25 09/10/25 Range/Units 12:10 12:10 12:42 WBC 9.6 (3.98-10.04) x10^3/uL RBC 4.30 (3.93-5.22) x10^6/uL Hgb 12.5 (11.2-15.7) g/dL Hct 38.5 (34.1-44.9) % MCV 89.5 (79.4-94.8) fL MCH 29.1 (25.6-32.2) pg MCHC 32.5 (32.2-35.5) g/dL RDW 12.8 (11.7-14.4) % Plt Count 281 (182-369) x10^3/uL MPV 11.3 (9.4-12.3) fL Gran % 66.6 (34.0-71.1) % Immature Gran % (Auto) 0.4 (0.001-0.429) % Nucleat RBC Rel Count 0.0 (0.00-0.2) % Eos # (Auto) 0.17 (0.04-0.36) x10^3/uL Immature Gran # (Auto) 0.04 H (0.001-0.031) x10^3u/L Absolute Lymphs (auto) 2.37 (1.18-3.74) x10^3/uL Absolute Monos (auto) 0.59 (0.24-0.86) x10^3/uL Absolute Nucleated RBC 0.00 (0.00-0.012) x10^3u/L Lymphocytes % 24.8 (19.3-51.7) % Monocytes % 6.2 (4.7-12.5) % Eosinophils % 1.8 (0.7-5.8) % Basophils % 0.2 (0.1-1.2) % Absolute Granulocytes 6.38 H (1.56-6.13) x10^3/uL Basophils # 0.02 (0.01-0.08) x10^3/uL Sodium 138 (135-145) mmol/L Potassium 3.8 (3.5-5.1) mmol/L Chloride 102 (98-107) mmol/L Carbon Dioxide 26 (22-30) mmol/L Anion Gap 13.3 (5-15) MEQ/L BUN 11 (7-17) mg/dL Creatinine 0.65 (0.52-1.04) mg/dL Estimated GFR 103.3 ML/MIN Glucose 93 (74-106) mg/dL POC Glucometer (74 to 106) mg/dL Hemoglobin A1c 7.80 H (4.5-6.0) % Calcium 9.7 (8.4-10.2) mg/dL Total Bilirubin 0.60 (0.2-1.3) mg/dL AST 31 (14-36) U/L ALT 23 (0-35) U/L Alkaline Phosphatase 68 (38-126) U/L Serum Total Protein 7.9 (6.3-8.2) g/dL Albumin 4.5 (3.5-5.0) g/dL 09/10/25 09/10/25 09/10/25 Range/Units 16:34 16:34 22:27 WBC (3.98-10.04) x10^3/uL RBC (3.93-5.22) x10^6/uL Hgb (11.2-15.7) g/dL Hct (34.1-44.9) % MCV (79.4-94.8) fL MCH (25.6-32.2) pg MCHC (32.2-35.5) g/dL RDW (11.7-14.4) % Plt Count (182-369) x10^3/uL MPV (9.4-12.3) fL Gran % (34.0-71.1) % Immature Gran % (Auto) (0.001-0.429) % Nucleat RBC Rel Count (0.00-0.2) % Eos # (Auto) (0.04-0.36) x10^3/uL Immature Gran # (Auto) (0.001-0.031) x10^3u/L Absolute Lymphs (auto) (1.18-3.74) x10^3/uL Absolute Monos (auto) (0.24-0.86) x10^3/uL Absolute Nucleated RBC (0.00-0.012) x10^3u/L Lymphocytes % (19.3-51.7) % Monocytes % (4.7-12.5) % Eosinophils % (0.7-5.8) % Basophils % (0.1-1.2) % Absolute Granulocytes (1.56-6.13) x10^3/uL Basophils # (0.01-0.08) x10^3/uL Sodium (135-145) mmol/L Potassium (3.5-5.1) mmol/L Chloride (98-107) mmol/L Carbon Dioxide (22-30) mmol/L Anion Gap (5-15) MEQ/L BUN (7-17) mg/dL Creatinine (0.52-1.04) mg/dL Estimated GFR ML/MIN Glucose (74-106) mg/dL POC Glucometer 182 H 182 H 88 (74 to 106) mg/dL Hemoglobin A1c (4.5-6.0) % Calcium (8.4-10.2) mg/dL Total Bilirubin (0.2-1.3) mg/dL AST (14-36) U/L ALT (0-35) U/L Alkaline Phosphatase (38-126) U/L Serum Total Protein (6.3-8.2) g/dL Albumin (3.5-5.0) g/dL 09/11/25 09/11/25 09/11/25 Range/Units 04:35 04:35 07:22 WBC 7.4 (3.98-10.04) x10^3/uL RBC 3.78 L (3.93-5.22) x10^6/uL Hgb 10.8 L (11.2-15.7) g/dL Hct 34.5 (34.1-44.9) % MCV 91.3 (79.4-94.8) fL MCH 28.6 (25.6-32.2) pg MCHC 31.3 L (32.2-35.5) g/dL RDW 12.8 (11.7-14.4) % Plt Count 262 (182-369) x10^3/uL MPV 11.7 (9.4-12.3) fL Gran % (34.0-71.1) % Immature Gran % (Auto) (0.001-0.429) % Nucleat RBC Rel Count (0.00-0.2) % Eos # (Auto) (0.04-0.36) x10^3/uL Immature Gran # (Auto) (0.001-0.031) x10^3u/L Absolute Lymphs (auto) (1.18-3.74) x10^3/uL Absolute Monos (auto) (0.24-0.86) x10^3/uL Absolute Nucleated RBC (0.00-0.012) x10^3u/L Lymphocytes % (19.3-51.7) % Monocytes % (4.7-12.5) % Eosinophils % (0.7-5.8) % Basophils % (0.1-1.2) % Absolute Granulocytes (1.56-6.13) x10^3/uL Basophils # (0.01-0.08) x10^3/uL Sodium 136 (135-145) mmol/L Potassium 4.4 (3.5-5.1) mmol/L Chloride 103 (98-107) mmol/L Carbon Dioxide 25 (22-30) mmol/L Anion Gap 12.4 (5-15) MEQ/L BUN 12 (7-17) mg/dL Creatinine 0.77 (0.52-1.04) mg/dL Estimated GFR 90.5 ML/MIN Glucose 146 H (74-106) mg/dL POC Glucometer 132 H (74 to 106) mg/dL Hemoglobin A1c (4.5-6.0) % Calcium 9.4 (8.4-10.2) mg/dL Total Bilirubin 0.40 (0.2-1.3) mg/dL AST 25 (14-36) U/L ALT 18 (0-35) U/L Alkaline Phosphatase 52 (38-126) U/L Serum Total Protein 6.8 (6.3-8.2) g/dL Albumin 3.8 (3.5-5.0) g/dL 09/11/25 Range/Units 11:09 WBC (3.98-10.04) x10^3/uL RBC (3.93-5.22) x10^6/uL Hgb (11.2-15.7) g/dL Hct (34.1-44.9) % MCV (79.4-94.8) fL MCH (25.6-32.2) pg MCHC (32.2-35.5) g/dL RDW (11.7-14.4) % Plt Count (182-369) x10^3/uL MPV (9.4-12.3) fL Gran % (34.0-71.1) % Immature Gran % (Auto) (0.001-0.429) % Nucleat RBC Rel Count (0.00-0.2) % Eos # (Auto) (0.04-0.36) x10^3/uL Immature Gran # (Auto) (0.001-0.031) x10^3u/L Absolute Lymphs (auto) (1.18-3.74) x10^3/uL Absolute Monos (auto) (0.24-0.86) x10^3/uL Absolute Nucleated RBC (0.00-0.012) x10^3u/L Lymphocytes % (19.3-51.7) % Monocytes % (4.7-12.5) % Eosinophils % (0.7-5.8) % Basophils % (0.1-1.2) % Absolute Granulocytes (1.56-6.13) x10^3/uL Basophils # (0.01-0.08) x10^3/uL Sodium (135-145) mmol/L Potassium (3.5-5.1) mmol/L Chloride (98-107) mmol/L Carbon Dioxide (22-30) mmol/L Anion Gap (5-15) MEQ/L BUN (7-17) mg/dL Creatinine (0.52-1.04) mg/dL Estimated GFR ML/MIN Glucose (74-106) mg/dL POC Glucometer 197 H (74 to 106) mg/dL Hemoglobin A1c (4.5-6.0) % Calcium (8.4-10.2) mg/dL Total Bilirubin (0.2-1.3) mg/dL AST (14-36) U/L ALT (0-35) U/L Alkaline Phosphatase (38-126) U/L Serum Total Protein (6.3-8.2) g/dL Albumin (3.5-5.0) g/dL Radiology Exams: Radiology Procedures Category Date Time Status UPPER EXTREMITY W CONTRAST [CT] Stat Exams 09/10/25 12:06 Completed Medications: Medications Generic Name Dose Route Start Last Admin Trade Name Freq PRN Reason Stop Dose Admin Acetaminophen 650 mg 09/10/25 17:11 Acetaminophen 325 Mg Tablet PO 10/10/25 17:10 Q6H PRN PRN PAIN AND/OR FEVER Aspirin 81 mg 09/11/25 10:00 09/11/25 10:20 Aspirin 81 Mg Tablet.Ec PO 10/11/25 09:59 81 mg DAILY VICKY Administration Calcium Carbonate 1 tab 09/11/25 10:00 09/11/25 10:20 Calcium Carbonate 500 Mg/Vitamin D 1 Tab Tablet PO 10/11/25 09:59 1 tab DAILY VICKY Administration Device 1 09/13/25 07:30 Therapuetic Drug Level Monitor Each IJ 09/13/25 07:31 1XONLY ONE Fenofibrate 145 mg 09/11/25 10:00 09/11/25 10:21 Fenofibrate,Micronized 145 Mg Tablet PO 10/11/25 09:59 145 mg DAILY VICKY Administration Ferrous Sulfate 325 mg 09/11/25 10:00 09/11/25 10:19 Ferrous Sulfate 325 Mg Tablet PO 10/11/25 09:59 325 mg DAILY VICKY Administration Hydralazine HCl 10 mg 09/10/25 17:07 Hydralazine Hcl 20 Mg/Ml Vial IV 10/10/25 17:06 Q4H PRN PRN HYPERTENSION Meropenem 1 gm/ Sodium 100 mls @ 200 mls/hr 09/10/25 22:00 09/11/25 05:00 Chloride IV 09/13/25 21:59 200 mls/hr Q8HT VICKY Administration Vancomycin HCl 1.25 gm in 250 mls @ 166.667 mls/hr 09/11/25 08:00 09/11/25 09:01 Vancomycin 1.25 Gm/250 Ml Bag IV 09/14/25 07:59 166.667 mls/hr Q12H VICKY Administration Insulin Glargine 15 unit 09/10/25 22:00 09/10/25 22:42 Insulin Glargine 1 Unit SQ 10/10/25 21:59 15 unit HS VICKY Administration Insulin Human Lispro 0 unit 09/10/25 22:00 09/11/25 10:07 Insulin Lispro 1 Unit SQ 10/10/25 21:59 Not Given ACHS VICKY Lactobacillus Acidophilus 1 tab 09/11/25 11:00 Lactobacillus Acidophilus 1 Tab Tablet PO 10/11/25 10:59 DAILY VICKY Levothyroxine Sodium 88 mcg 09/11/25 10:00 09/11/25 10:22 Levothyroxine Sodium 88 Mcg Tablet PO 10/11/25 09:59 Not Given DAILY VICKY Loratadine 10 mg 09/11/25 10:00 09/11/25 10:19 Loratadine 10 Mg Tablet PO 10/11/25 09:59 10 mg DAILY VICKY Administration Metformin HCl 500 mg 09/12/25 17:00 Metformin Hcl 500 Mg Tablet PO 10/12/25 16:59 BIDWM VICKY Metoprolol Succinate 100 mg 09/10/25 22:00 09/10/25 23:00 Metoprolol Succinate 50 Mg Tablet.Sa PO 10/10/25 21:59 100 mg HS VICKY Administration Miscellaneous Information 1 each 09/10/25 17:30 Medication Intervention 1 Each Each 10/10/25 17:29 .RN TO CHECK [facility] Non-Formulary Medication 1 each 09/10/25 14:00 09/11/25 10:07 Hold Metformin Products For 48hrs 09/12/25 14:00 Not Given Q48H VICKY Ondansetron HCl 4 mg 09/11/25 09:22 09/11/25 09:31 Ondansetron Hcl 4 Mg/2 Ml Vial IV 10/11/25 09:21 4 mg Q6H PRN PRN Administration NAUSEA/VOMITING Pantoprazole Sodium 40 mg 09/10/25 22:00 09/10/25 22:59 Protonix (Pantoprazole) 40 Mg Tablet PO 10/10/25 21:59 40 mg HS VICKY Administration Simethicone 120 mg 09/11/25 10:00 09/11/25 10:20 Simethicone 80 Mg Tab.Chew PO 10/11/25 09:59 120 mg DAILY VICKY Administration Simvastatin 20 mg 09/10/25 22:00 09/10/25 22:41 Simvastatin 20 Mg Tablet PO 10/10/25 21:59 20 mg HS VICKY Administration Tizanidine HCl 4 mg 09/10/25 18:30 09/10/25 22:41 Tizanidine Hcl 4 Mg Tablet PO 10/10/25 18:29 4 mg BID PRN PRN Administration MUSCLE SPASMS Tramadol HCl 50 mg 09/11/25 07:55 Tramadol Hcl 50 Mg Tablet PO 10/11/25 07:54 QID PRN PRN PAIN Discontinued Medications Generic Name Dose Route Start Last Admin Trade Name Freq PRN Reason Stop Dose Admin Hydrocodone Bitart/Acetaminophen 1 tab 09/10/25 17:10 09/10/25 22:41 Hydrocodone/Apap 5/325 1 Tab Tablet PO 09/15/25 17:09 1 tab BID PRN PRN Administration PAIN Hydrocodone Bitart/Acetaminophen 1 tab 09/11/25 07:54 Hydrocodone/Apap 5/325 1 Tab Tablet PO 09/16/25 07:53 QID PRN PRN PAIN Cyclobenzaprine HCl Confirm 09/10/25 22:38 Cyclobenzaprine Hcl 10 Mg Tablet Administered 09/10/25 22:39 Dose 10 mg .ROUTE .STK-MED ONE Fluconazole 150 mg 09/11/25 10:00 09/11/25 10:23 Fluconazole 150 Mg Tablet PO 09/11/25 10:01 150 mg ONCE ONE Administration Sodium Chloride 1,000 mls @ 100 mls/hr 09/10/25 12:00 09/10/25 12:00 Sodium Chloride 0.9% 1000 Ml IV 10/10/25 11:59 100 mls/hr .Q10H VICKY Administration Vancomycin HCl 1 gm in 200 mls @ 125 mls/hr 09/10/25 14:31 09/10/25 15:46 Vancomycin 1 Gram/200 Ml Bag IV 09/10/25 16:06 125 ml/hr STAT ONE 125 mls/hr Administration Meropenem 1 gm/ Sodium 100 mls @ 200 mls/hr 09/10/25 14:31 09/10/25 15:12 Chloride IV 09/10/25 15:00 Infused STAT ONE Infusion Sodium Chloride Confirm 09/10/25 14:37 Sodium Chloride 0.9% Administered 09/10/25 14:38 Dose 100 mls @ ud .ROUTE .STK-MED ONE Vancomycin HCl Confirm 09/10/25 15:45 Vancomycin 1 Gram/200 Ml Bag Administered 09/10/25 15:46 Dose 1 gm in 200 mls @ ud IV .STK-MED ONE Vancomycin HCl 1 gm in 200 mls @ 133.333 mls/hr 09/10/25 21:00 09/10/25 17:55 Vancomycin 1 Gram/200 Ml Bag IV 09/10/25 22:29 Not Given 2100 [facility] Ketorolac Tromethamine 30 mg 09/10/25 12:07 09/10/25 12:25 Ketorolac Tromethamine 30 Mg/Ml Inj IV 09/10/25 12:08 30 mg STAT ONE Administration Ketorolac Tromethamine Confirm 09/10/25 12:24 Ketorolac Tromethamine 30 Mg/Ml Inj Administered 09/10/25 12:25 Dose 30 mg .ROUTE .STK-MED ONE Ketorolac Tromethamine 30 mg 09/11/25 05:06 09/11/25 05:12 Ketorolac Tromethamine 30 Mg/Ml Inj IV 09/11/25 05:07 30 mg ONCE ONE Administration Meropenem Confirm 09/10/25 14:37 Meropenem 1 Gm Vial Administered 09/10/25 14:38 Dose 1 gm IV .STK-MED ONE Metoprolol Succinate 100 mg 09/11/25 10:00 Metoprolol Succinate 50 Mg Tablet.Sa PO 10/11/25 09:59 DAILY [facility] Non-Formulary Medication 1 each 09/10/25 16:41 09/10/25 17:54 Pharmacy Dose Request: Vancomycin 1 Each IV 09/10/25 16:42 1 each STAT STA Administration Pantoprazole Sodium 40 mg 09/11/25 10:00 Protonix (Pantoprazole) 40 Mg Tablet PO 10/11/25 09:59 DAILY [facility] Multi-Disciplinary Progress Notes: Multi-Disciplinary Progress Notes 09/10/25 16:53 Pharmacy Note by Alonso Arthur Vancomycin dosingm dose tonight, then start 1.25gm iv q12h tomorrow am. Will review labs tomorrow and order trough. Initialized on 09/10/25 16:53 - END OF NOTE Assessment/Plan (1) Dog bite Current Visit: Yes Status: Acute Qualifiers: Encounter type: subsequent encounter Qualified Code(s): W54.0XXD - Bitten by dog, subsequent encounter Code(s): W54.0XXA - BITTEN BY DOG, INITIAL ENCOUNTER (2) Cellulitis Current Visit: Yes Status: Acute Code(s): L03.90 - CELLULITIS, UNSPECIFIED (3) Morbid obesity Current Visit: Yes Status: Chronic Code(s): E66.01 - MORBID (SEVERE) OBESITY DUE TO EXCESS CALORIES (4) Pyomyositis Current Visit: Yes Status: Acute Code(s): M60.009 - INFECTIVE MYOSITIS, UNSPECIFIED SITE (5) Lymphangitis Current Visit: Yes Status: Acute Code(s): I89.1 - LYMPHANGITIS (6) Type II diabetes mellitus Current Visit: Yes Status: Chronic Qualifiers: Diabetes mellitus prison insulin use: with prison use Diabetes mellitus complication status: without complication Qualified Code(s): E11.9 - Type 2 diabetes mellitus without complications; Z79.4 - rodent exterminator (current) use of insulin (7) GERD (gastroesophageal reflux disease) Current Visit: Yes Status: Chronic Code(s): K21.9 - GASTRO-ESOPHAGEAL REFLUX DISEASE WITHOUT ESOPHAGITIS (8) Anxiety Current Visit: Yes Status: Chronic Code(s): F41.9 - ANXIETY DISORDER, UNSPECIFIED (9) CHF (congestive heart failure) Current Visit: Yes Status: Chronic Code(s): I50.9 - HEART FAILURE, UNSPECIFIED (10) HTN (hypertension) Current Visit: Yes Status: Chronic Code(s): I10 - ESSENTIAL (PRIMARY) HYPERTENSION (11) Hypothyroidism Current Visit: Yes Status: Chronic Assessment & Plan: (1) Dog bite Current Visit: Yes Status: Acute Qualifiers: Encounter type: subsequent encounter Qualified Code(s): W54.0XXD - Bitten by dog, subsequent encounter Assessment & Plan: - Sent to ER by PCP - Was seen at [facility] initally - Labs reviewed - Radiology results reviewed - Dog bite form completed at initial visit at [facility] per pt. - Elevate arm to heart level - Took Clindamycin OP - BC x2 - TDAP up to date - IV antibiotics - Narcotic pain medication BID PRN - Tylenol PRN 09/11 - [place] d/c'd as pt did not find this helpful - Overnight provider ordered todoral x1, also received in ER yesterday. Pt did find this helpful but discussed possible side effects. - Changed pain med to Tramadol QID Code(s): W54.0XXA - BITTEN BY DOG, INITIAL ENCOUNTER (2) Cellulitis Current Visit: Yes Status: Acute Assessment & Plan: - From dog bite of right hand - IV antibiotics - CBC, CMP reviewed 12/3 - CBC, CMP reviewed - Erythema improved Code(s): L03.90 - CELLULITIS, UNSPECIFIED (3) Morbid obesity Current Visit: Yes Status: Chronic Assessment & Plan: - Advised ADA diet and exercise control Code(s): E66.01 - MORBID (SEVERE) OBESITY DUE TO EXCESS CALORIES (4) Pyomyositis Current Visit: Yes Status: Acute Assessment & Plan: - As seen on CT extremity: 1. Soft tissue swelling/induration base 2nd finger favoring cellulitis. 2. Small intramuscular fluid collection abductor pollicis muscle with peripheral enhancement favoring pyomyositis. 3. Incidental tiny scaphoid/lunate subcortical cysts. - Ortho consult- no intervention needed at this time. - IV antibiotics Code(s): M60.009 - INFECTIVE MYOSITIS, UNSPECIFIED SITE (5) Lymphangitis Current Visit: Yes Status: Acute Assessment & Plan: - As seen on CT extremity - IV antibiotics Code(s): I89.1 - LYMPHANGITIS (6) Type II diabetes mellitus Current Visit: Yes Status: Chronic Qualifiers: Diabetes mellitus terminal carman insulin use: with prison use Diabetes mellitus complication status: without complication Qualified Code(s): E11.9 - Type 2 diabetes mellitus without complications; Z79.4 - rodent exterminator (current) use of insulin Assessment & Plan: - A1C 7.80- uncontrolled - Accuchecks Ac/HS - Humalog s/s - Continue metformin (7) GERD (gastroesophageal reflux disease) Current Visit: Yes Status: Chronic Assessment & Plan: - Continue PPI Code(s): K21.9 - GASTRO-ESOPHAGEAL REFLUX DISEASE WITHOUT ESOPHAGITIS (8) Anxiety Current Visit: Yes Status: Chronic Assessment & Plan: - Continue home meds Code(s): F41.9 - ANXIETY DISORDER, UNSPECIFIED (9) CHF (congestive heart failure) Current Visit: Yes Status: Chronic Assessment & Plan: - Not in acute exacerbation - Continue home meds Code(s): I50.9 - HEART FAILURE, UNSPECIFIED (10) HTN (hypertension) Current Visit: Yes Status: Chronic Assessment & Plan: - BP elevated- trend - Hydralizine PRN Code(s): I10 - ESSENTIAL (PRIMARY) HYPERTENSION (11) Hypothyroidism Current Visit: Yes Status: Chronic Assessment & Plan: - Continue Synthroid Code(s): E03.9 - HYPOTHYROIDISM, UNSPECIFIED Code(s): E03.9 - HYPOTHYROIDISM, UNSPECIFIED (12) Diarrhea Current Visit: Yes Status: Acute Assessment & Plan: - C-diff pending - Probiotic - Pt took home imodium last night she stated, education provided on not taking any further home meds from purse. - Advised to provide nurse with med if she needs to take something for it to have a label to scan. VTE: Lovenox PPI: omeprazole Next of KIN: Spouse- Jaya D/Rei plan: 1-2 days Code status: Full PLan of care time > 50 minutes Code(s): R19.7 - DIARRHEA, UNSPECIFIED
[2025-09-11] MEDS: Acidophilus TABLET PO SCH (12:28)
[2025-09-11] MEDS: ULTRAM 50 MG PO PRN (15:08)
[2025-09-11 15:37] LABS: 027 TOX PROD PRESUMPTIVE NEGATIVE (NEGATIVE); TOXIGENIC C. DIFF ORG NEGATIVE (NEGATIVE)
[2025-09-11] MEDS: TYLENOL 325 MG PO PRN (20:22)
[2025-09-11] MEDS: BENADRYL 25 MG CAPSULE PO PRN (21:31)
[2025-09-12 05:03] LABS: Hematocrit 34.2 % (34.1-44.9); Hemoglobin 10.8 g/dL (11.2-15.7); Mean Corpuscular Hemoglobin 28.4 pg (25.6-32.2); Mean Corpuscular Hgb Concent. 31.6 g/dL (32.2-35.5); Platelet Count 253 x10^3/uL (182-369); Red Blood Count 3.80 x10^6/uL (3.93-5.22); White Blood Count 4.7 x10^3/uL (3.98-10.04)
[2025-09-12 05:19] LABS: Calcium 9.4 mg/dL (8.4-10.2); Carbon Dioxide 25.0 mmol/L (22-30); Creatinine 1 0.83 mg/dL (0.52-1.04); EST GLOMERULAR FILTRATION RATE 82.7 ML/MIN; Glucose 171.0 mg/dL (74-106); Potassium 4.3 mmol/L (3.5-5.1); SGOT/AST 29.0 U/L (14-36); SGPT/ALT 20.0 U/L (0-35); Total Protein 6.9 g/dL (6.3-8.2)
[2025-09-12 07:11] VITALS: BP 129/79; PULSE 66; RESP 17; TEMP 96.7; O2SAT 97
--- NOTE | 2025-09-12 11:32 | PCM.DS ---
Discharge Summary Date of Admission: 09/10/25 16:16 Date of Discharge: 09/12/25 Admitting Physician: JOLEEN WILSON MD Primary Care Provider: DESTINEE PRECIADO DO Allergies Allergies Penicillins Allergy (Severe, Verified 09/10/25 11:19) Anaphylactic Reaction adhesive Adverse Reaction (Mild, Verified 09/10/25 11:19) Skin Irritation Hospital Summary - Hospital Course Hospital Course: 09/10/25 is a 55-year-old female with a past medical history of seizure disorder, congestive heart failure, type II diabetes mellitus, arthritis, GERD, irritable bowel syndrome, anxiety, and former tobacco use who presented on 09/10/25 as a referral from her primary care physician for evaluation of a progressively worsening dog bite to the right hand. The injury occurred several days prior when she was bitten by her own dog. She was initially evaluated at [facility], where she received a Tdap vaccine and was prescribed clindamycin, which was later discontinued when a new prescription was sent but not obtained. CT imaging of the right hand demonstrated cellulitis with a small intramuscular fluid collection concerning for pyomyositis, though orthopedics did not feel surgical drainage was indicated. She was started on IV antibiotics, her right upper extremity was elevated, and pain was managed with Toradol. Blood cultures 2 were obtained and remained negative. On 09/11, she reported feeling better, though erythema and edema persisted; IV Merrem and vancomycin were continued, and she developed diarrhea prompting C. difficile testing and initiation of probiotics. By 09/12, her wound redness and edema had improved, labs remained nonconcerning, and she was clinically stable. She will be discharged home on oral antibiotics, with Diflucan prescribed for a vaginal yeast infection. She is to follow up with her primary care physician as an outpatient. She was discharged in stable condition. - Vitals & Intake/Output Vital Signs: Vital Signs Temperature 96.7 F 09/12/25 07:08 Pulse Rate 66 09/12/25 07:08 Respiratory Rate 17 09/12/25 07:08 Blood Pressure 129/79 09/12/25 07:08 O2 Sat by Pulse Oximetry 97 09/12/25 07:08 Intake & Output: Intake & Output 09/09/25 09/10/25 09/11/25 09/12/25 11:59 11:59 11:59 11:59 Intake Total 1420 1530 Balance 1420 1530 Weight 114.2 kg 118 kg - Lab Result Diagrams: 09/12/25 04:56 09/12/25 04:56 Lab Results-Last 24 Hrs: Lab Results-Last 24 Hours 09/11/25 09/11/25 09/11/25 Range/Units 14:45 16:24 20:33 WBC (3.98-10.04) x10^3/uL RBC (3.93-5.22) x10^6/uL Hgb (11.2-15.7) g/dL Hct (34.1-44.9) % MCV (79.4-94.8) fL MCH (25.6-32.2) pg MCHC (32.2-35.5) g/dL RDW (11.7-14.4) % Plt Count (182-369) x10^3/uL MPV (9.4-12.3) fL Sodium (135-145) mmol/L Potassium (3.5-5.1) mmol/L Chloride (98-107) mmol/L Carbon Dioxide (22-30) mmol/L Anion Gap (5-15) MEQ/L BUN (7-17) mg/dL Creatinine (0.52-1.04) mg/dL Estimated GFR ML/MIN Glucose (74-106) mg/dL POC Glucometer 152 H 143 H (74 to 106) mg/dL Calcium (8.4-10.2) mg/dL Total Bilirubin (0.2-1.3) mg/dL AST (14-36) U/L ALT (0-35) U/L Alkaline Phosphatase (38-126) U/L Serum Total Protein (6.3-8.2) g/dL Albumin (3.5-5.0) g/dL C. difficile Screen NEGATIVE (NEGATIVE) C.difficile 027-NAP1-B1 PRESUMPTIVE NEGATIVE (NEGATIVE) 09/12/25 09/12/25 09/12/25 Range/Units 04:56 04:56 06:54 WBC 4.7 (3.98-10.04) x10^3/uL RBC 3.80 L (3.93-5.22) x10^6/uL Hgb 10.8 L (11.2-15.7) g/dL Hct 34.2 (34.1-44.9) % MCV 90.0 (79.4-94.8) fL MCH 28.4 (25.6-32.2) pg MCHC 31.6 L (32.2-35.5) g/dL RDW 12.8 (11.7-14.4) % Plt Count 253 (182-369) x10^3/uL MPV 11.0 (9.4-12.3) fL Sodium 136 (135-145) mmol/L Potassium 4.3 (3.5-5.1) mmol/L Chloride 102 (98-107) mmol/L Carbon Dioxide 25 (22-30) mmol/L Anion Gap 12.7 (5-15) MEQ/L BUN 13 (7-17) mg/dL Creatinine 0.83 (0.52-1.04) mg/dL Estimated GFR 82.7 ML/MIN Glucose 171 H (74-106) mg/dL POC Glucometer 182 H (74 to 106) mg/dL Calcium 9.4 (8.4-10.2) mg/dL Total Bilirubin 0.50 (0.2-1.3) mg/dL AST 29 (14-36) U/L ALT 20 (0-35) U/L Alkaline Phosphatase 55 (38-126) U/L Serum Total Protein 6.9 (6.3-8.2) g/dL Albumin 3.9 (3.5-5.0) g/dL C. difficile Screen (NEGATIVE) C.difficile 027-NAP1-B1 (NEGATIVE) 09/12/25 Range/Units 11:18 WBC (3.98-10.04) x10^3/uL RBC (3.93-5.22) x10^6/uL Hgb (11.2-15.7) g/dL Hct (34.1-44.9) % MCV (79.4-94.8) fL MCH (25.6-32.2) pg MCHC (32.2-35.5) g/dL RDW (11.7-14.4) % Plt Count (182-369) x10^3/uL MPV (9.4-12.3) fL Sodium (135-145) mmol/L Potassium (3.5-5.1) mmol/L Chloride (98-107) mmol/L Carbon Dioxide (22-30) mmol/L Anion Gap (5-15) MEQ/L BUN (7-17) mg/dL Creatinine (0.52-1.04) mg/dL Estimated GFR ML/MIN Glucose (74-106) mg/dL POC Glucometer 118 H (74 to 106) mg/dL Calcium (8.4-10.2) mg/dL Total Bilirubin (0.2-1.3) mg/dL AST (14-36) U/L ALT (0-35) U/L Alkaline Phosphatase (38-126) U/L Serum Total Protein (6.3-8.2) g/dL Albumin (3.5-5.0) g/dL C. difficile Screen (NEGATIVE) C.difficile 027-NAP1-B1 (NEGATIVE) Micro Results-Entire Visit: Microbiology 09/10/25 12:21 Blood Culture - Preliminary Blood 09/10/25 12:28 Blood Culture - Preliminary Blood Accuchecks Date 09/12/25 Date 09/11/25 Date 09/11/25 Date 09/11/25 Time 07:07 - Radiology Exams Ordered Rad Exams-Entire Visit: Radiology Procedures Category Date Time Status UPPER EXTREMITY W CONTRAST [CT] Stat Exams 09/10/25 12:06 Completed Discharge Exam General Appearance: no apparent distress, alert Neurologic Exam: alert, oriented x 3, cooperative, normal mood/affect, nml cerebellar function, sensation nml, No motor deficits Eye Exam: PERRL, EOMI, eyes nml inspection Ears, Nose, Throat Exam: normal ENT inspection, pharynx normal, moist mucous membranes Neck Exam: normal inspection, non-tender, supple, full range of motion Respiratory Exam: normal breath sounds, lungs clear, No respiratory distress Cardiovascular Exam: regular rate/rhythm, normal heart sounds Gastrointestinal/Abdomen Exam: soft, No tenderness, No mass Pelvic Exam: deferred Rectal Exam: deferred Back Exam: normal inspection, normal range of motion, No CVA tenderness, No vertebral tenderness Extremity Exam: normal inspection, normal range of motion Skin Exam: normal color, warm, dry, other (Right hand dog bite, erythema improved, edema resolved.) Wound Assessment: Skin/Wound Assessment Wound/Incision Assessment Start: 09/11/25 03:37 Text: Status: Active Freq: Q6H Protocol: Document 09/12/25 08:00 AR (Rec: 09/12/25 09:41 AR [id number]) Wound/Incision Assessment Left breast Wound Assessment Shift Assessment Wound Type Puncture Wound Stage Non Pressure Wound Dressing Status Dry & Intact Drainage Amount None General Appearance Open to air Comment Dog bite, Open to air, scabbed , bruising noted around site. No drainage. Left Elbow Wound Assessment Shift Assessment Wound Type dog bite Wound Stage Non Pressure Wound Drainage Amount None Drainage Odor None/Absent General Appearance Open to air Surrounding Tissue Bright Red Comment Open to air, bruising noted around site, scabbed. No drainage noted Right Hand Wound Assessment Shift Assessment Wound Type Puncture Wound Stage Non Pressure Wound Drainage Amount None Drainage Odor None/Absent General Appearance Open to air Surrounding Tissue Bright Red,Edematous Primary Dressing Steri-Strips Comment Steri-strips remain intact Wound Photo Photo Taken No Final Diagnosis/Problem List - Final Discharge Diagnosis/Problem (1) Dog bite Current Visit: Yes Status: Acute Code(s): W54.0XXA - BITTEN BY DOG, INITIAL ENCOUNTER (2) Cellulitis Current Visit: Yes Status: Acute Code(s): L03.90 - CELLULITIS, UNSPECIFIED (3) Morbid obesity Current Visit: Yes Status: Chronic Code(s): E66.01 - MORBID (SEVERE) OBESITY DUE TO EXCESS CALORIES (4) Pyomyositis Current Visit: Yes Status: Acute Code(s): M60.009 - INFECTIVE MYOSITIS, UNSPECIFIED SITE (5) Lymphangitis Current Visit: Yes Status: Acute Code(s): I89.1 - LYMPHANGITIS (6) Type II diabetes mellitus Current Visit: Yes Status: Chronic (7) GERD (gastroesophageal reflux disease) Current Visit: Yes Status: Chronic Code(s): K21.9 - GASTRO-ESOPHAGEAL REFLUX DISEASE WITHOUT ESOPHAGITIS (8) Anxiety Current Visit: Yes Status: Chronic Code(s): F41.9 - ANXIETY DISORDER, UNSPECIFIED (9) CHF (congestive heart failure) Current Visit: Yes Status: Chronic Code(s): I50.9 - HEART FAILURE, UNSPECIFIED (10) HTN (hypertension) Current Visit: Yes Status: Chronic Code(s): I10 - ESSENTIAL (PRIMARY) HYPERTENSION (11) Hypothyroidism Current Visit: Yes Status: Chronic Code(s): E03.9 - HYPOTHYROIDISM, UNSPECIFIED (12) Diarrhea Current Visit: Yes Status: Acute Assessment & Plan: (1) Dog bite Current Visit: Yes Status: Acute Qualifiers: Encounter type: subsequent encounter Qualified Code(s): W54.0XXD - Bitten by dog, subsequent encounter Assessment & Plan: - Sent to ER by PCP - Was seen at [facility] initally - Labs reviewed - Radiology results reviewed - Dog bite form completed at initial visit at [facility] per pt. - Elevate arm to heart level - Took Clindamycin OP - BC x2 - TDAP up to date - IV antibiotics - Narcotic pain medication BID PRN - Tylenol PRN 09/11 - [place] d/c'd as pt did not find this helpful - Overnight provider ordered todoral x1, also received in ER yesterday. Pt did find this helpful but discussed possible side effects. - Changed pain med to Tramadol QID 09/12 - pain well controlled- will d/c with pain meds - Continue OP PO antibiotic - Erythema improved, edema resolved - CBC, CMP reviewed - BC x2 negative Code(s): W54.0XXA - BITTEN BY DOG, INITIAL ENCOUNTER (2) Cellulitis Current Visit: Yes Status: Acute Assessment & Plan: - From dog bite of right hand - IV antibiotics - CBC, CMP reviewed 09/11 - CBC, CMP reviewed - Erythema improved 09/12 - improved Code(s): L03.90 - CELLULITIS, UNSPECIFIED (3) Morbid obesity Current Visit: Yes Status: Chronic Assessment & Plan: - Advised ADA diet and exercise control Code(s): E66.01 - MORBID (SEVERE) OBESITY DUE TO EXCESS CALORIES (4) Pyomyositis Current Visit: Yes Status: Acute Assessment & Plan: - As seen on CT extremity: 1. Soft tissue swelling/induration base 2nd finger favoring cellulitis. 2. Small intramuscular fluid collection abductor pollicis muscle with peripheral enhancement favoring pyomyositis. 3. Incidental tiny scaphoid/lunate subcortical cysts. - Ortho consult- no intervention needed at this time. - IV antibiotics 12/4 - D/C with PO antibiotic Code(s): M60.009 - INFECTIVE MYOSITIS, UNSPECIFIED SITE (5) Lymphangitis Current Visit: Yes Status: Acute Assessment & Plan: - As seen on CT extremity - IV antibiotics 12/4 - D/C with PO antibiotic Code(s): I89.1 - LYMPHANGITIS (6) Type II diabetes mellitus Current Visit: Yes Status: Chronic Qualifiers: Diabetes mellitus termite treater helper insulin use: with termite treater helper use Diabetes mellitus complication status: without complication Qualified Code(s): E11.9 - Type 2 diabetes mellitus without complications; Z79.4 - manager long term care (current) use of insulin Assessment & Plan: - A1C 7.80- uncontrolled- education provided - Accuchecks Ac/HS - Humalog s/s - Continue metformin (7) GERD (gastroesophageal reflux disease) Current Visit: Yes Status: Chronic Assessment & Plan: - Continue PPI Code(s): K21.9 - GASTRO-ESOPHAGEAL REFLUX DISEASE WITHOUT ESOPHAGITIS (8) Anxiety Current Visit: Yes Status: Chronic Assessment & Plan: - Continue home meds Code(s): F41.9 - ANXIETY DISORDER, UNSPECIFIED (9) CHF (congestive heart failure) Current Visit: Yes Status: Chronic Assessment & Plan: - Not in acute exacerbation - Continue home meds Code(s): I50.9 - HEART FAILURE, UNSPECIFIED (10) HTN (hypertension) Current Visit: Yes Status: Chronic Assessment & Plan: - BP elevated- trend - Hydralizine PRN Code(s): I10 - ESSENTIAL (PRIMARY) HYPERTENSION (11) Hypothyroidism Current Visit: Yes Status: Chronic Assessment & Plan: - Continue Synthroid Code(s): E03.9 - HYPOTHYROIDISM, UNSPECIFIED (12) Diarrhea Current Visit: Yes Status: Acute Assessment & Plan: - C-diff negative - Probiotic - Pt took home imodium last night she stated, education provided on not taking any further home meds from [facility] [place]. - Advised to provide nurse with med if she needs to take something for it to have a label to scan. Code(s): R19.7 - DIARRHEA, UNSPECIFIED (13) Vaginal yeast infection Current Visit: Yes Status: Acute Assessment & Plan: - Diflucan 150 gave on 09/11 - Will d/c with PO diflucan to give in 72 hours per pt request D/C plan of care > 35 minutes Code(s): B37.31 - ACUTE CANDIDIASIS OF VULVA AND VAGINA - Discharge Discharge Date: 09/12/25 Disposition: Home, Self-Care Condition: Stable Prescriptions: New Tramadol HCl 50 mg [Ultram 50 mg] 50 mg PO QID PRN PRN 3 Days #12 tablet MDD 4 PRN Reason: Pain Continue Fexofenadine HCl [Deanna Allergy] 60 mg PO DAILY Aspirin 81 mg PO DAILY Calcium Citrate/Vitamin D3 [Calcium Citrate - Vit D3 Tab] 1 each PO DAILY Omeprazole 20 mg PO DAILY Cinnamon Bark [Cinnamon] 2,000 mg PO DAILY Naproxen Sodium [Aleve] 220 mg PO Q4-6HPRN PRN PRN Reason: Pain Ferrous Sulfate [Iron] 65 mg PO DAILY Mecobalamin [B12 Active] 0.5 tab PO WEEKLY Rosuvastatin Calcium 10 mg PO HS Tirzepatide [Mounjaro] 2.5 mg SQ WEEKLY Insulin Glargine [Lantus Insulin] 15 units SQ HS Insulin Aspart [NovoLOG Insulin] See Rx Instructions .ROUTE .COMPLEX Metoprolol Succinate [Toprol Xl] 100 mg PO DAILY Levothyroxine Sodium 88 Mcg [Synthroid 88 Mcg] 88 mcg PO DAILY Metformin HCl 500 mg [Glucophage 500 MG] 500 mg PO BIDWM Fenofibrate 160 mg PO DAILY Simethicone 125 mg PO DAILY Instructions: Type 2 diabetes - Discharge instructions, Obesity, Adult, Animal and human bites, Vaginitis in adults Additional Instructions: *You can buy probiotics OTC if you found them helpful for your diarrhea. You can also take immodium if needed, following label directions. Do not exceed max daily dose per package instructions. I would advise stop taking Aleve due to your medical history of gastric bypass. Follow up with: DESTINEE PRECIADO DO [Primary Care Provider, FAMILY PRACTICE]
[2025-09-12] MEDS: FIBERCON 625 MG PO ONE (11:35)
[2025-09-12] MEDS ORDERED: Glucophage 500 MG PO SCH (17:00)
[2025-09-13] MEDS ORDERED: TROUGH DRUG LEVELS IJ ONE (07:30)
== END 2025-09-12 13:11 | disposition home or self-care (01) ==
LOC: ED 11:04 → MED SURG 16:16
PROVIDERS: ADMIT Internal Medicine; ATTEND Internal Medicine
DX: L03.113 Cellulitis of right upper limb (principal); W54.0XXD Bitten by dog, subsequent encounter; E66.01 Morbid (severe) obesity due to excess calories; M60.009 Infective myositis, unspecified site; E11.9 Type 2 diabetes mellitus without complications; K21.9 Gastro-esophageal reflux disease without esophagitis; F41.9 Anxiety disorder, unspecified; I11.0 Hypertensive heart disease with heart failure; I50.9 Heart failure, unspecified; E03.9 Hypothyroidism, unspecified; R19.7 Diarrhea, unspecified; B37.31 Acute candidiasis of vulva and vagina; Z79.4 Long term (current) use of insulin; Z79.899 Other long term (current) drug therapy
CPT/HCPCS: 36415; 73201; 80053; 82947; 83036; 85025; 85027; 87040; 87493; 93041; 93268; 94760; 96374; 99285; G0378; Q3014